=== PATIENT | male | born 1995 | race Caucasian/White ===

== ENCOUNTER 2020-08-26 09:41 | Inpatient (IN) | payer OTHER ==
[2020-08-26 10:53] LABS: PTT 46.7 sec (22.9-36.1); Prothrombin Time 13.8 sec (12.0-14.7)
[2020-08-26 13:52] LABS: Troponin I 4.644 ng/mL (< 0.028)
[2020-08-26 14:06] VITALS: BMI 32.9
[2020-08-26] MEDS ORDERED: Bisacodyl 5 MG TAB PO PRN (14:09)
[2020-08-26] MEDS ORDERED: Calcium Carbonate 500 MG ChewTAB PO PRN (14:09)
[2020-08-26] MEDS ORDERED: Acetaminophen 650 MG Suppository PR PRN (14:09)
[2020-08-26] MEDS ORDERED: Acetaminophen 325 MG TAB PO PRN (14:09)
[2020-08-26] MEDS ORDERED: Ondansetron ODT 4 MG TAB PO PRN (14:09)
[2020-08-26] MEDS ORDERED: Ondansetron PF 4 MG/2 ML Vial IVP PRN (14:09)
[2020-08-26] MEDS ORDERED: Senokot S 8.6-50 MG TAB PO PRN (14:09)
[2020-08-26] MEDS ORDERED: Bisacodyl 10 MG SUPP PR PRN (14:09)
[2020-08-26 14:26] LABS: Amphetamine Not Detected (NotDetected); Barbiturates Screen Not Detected (NotDetected); Benzodiazepine Screen Not Detected (NotDetected); Cocaine Metabolite Screen Not Detected (NotDetected); Medtox Control Line Valid? VALID (VALID); Medtox Reader # READER 1; Methadone Not Detected (NotDetected); Methamphetamine Not Detected (NotDetected); Opiate Screen Not Detected (NotDetected); Oxycodone Screen Not Detected (NotDetected); Phencyclidine (PCP) Not Detected (NotDetected); THC/Cannabinoid Screen Not Detected (NotDetected); Tricyclic Screen Not Detected (NotDetected)
[2020-08-26 17:05] LABS: Troponin I 5.314 ng/mL (< 0.028)
[2020-08-26] MEDS ORDERED: Communication Order-Pharmacy FS SCH (17:15)
[2020-08-26] MEDS ORDERED: Enoxaparin Sodium 120 MG/0.8 ML SYRINGE SC SCH (21:00)
[2020-08-27] MEDS: Carvedilol 3.125 MG TAB PO SCH ×2 (05:18→18:26)
[2020-08-27 05:43] LABS: #Eosinphils 0.2 thou/uL (0.0-0.7); #Lymphocytes 2.1 thou/uL (1.20-3.40); #Monocytes 0.8 thou/uL (0.11-0.59); #Neutrophils 3.8 thou/uL (1.40-6.50); %Basophils 0.6 % (0.0-1.0); %Eosinophils 2.7 % (0.0-10.0); %Lymphocytes 30.4 % (21.0-51.0); %Monocytes 11.8 % (0.0-10.0); %Neutrophils 54.5 % (42.0-75.0); Mean Corpuscular HGB CONC 33.4 g/dL (32.0-36.0); Mean Corpuscular Hemoglobin 30.6 pg (27.0-31.0); Mean Corpuscular Volume 91.6 fL (78.0-98.0); Platelet Count 214 thou/uL (130-400); RBC Distribution Width 11.5 % (11.5-14.5)
[2020-08-27 05:55] LABS: Hemoglobin A1c 4.5 % (4.0-6.0)
[2020-08-27 06:00] LABS: ALT (SGPT) 22 U/L (8-55); AST (SGOT) 32 U/L (5-34); Albumin 4.3 g/dL (3.5-5.0); Alkaline Phosphatase 53 U/L (40-110); Anion Gap 16 mmol/L (10-20); BUN (Urea Nitrogen) 12 mg/dL (8.9-20.6); Bilirubin, Total 1.4 mg/dL (0.2-1.2); Calc. Creatinine Clearance 222 mL/min (70-130); Calcium 9.3 mg/dL (7.8-10.44); Carbon Dioxide 20 mmol/L (22-29); Cardiac Risk 5.8 (Less than 4.5); Chloride 108 mmol/L (98-107); Cholesterol 219 mg/dl (< 200 Desired); Globulin 2.9 g/dL (2.4-3.5); Glucose 111 mg/dL (70-105); HDL Cholesterol 38 mg/dL (>60 Neg Risk); LDL Cholesterol, Calculated 158 mg/dL; Potassium 3.7 mmol/L (3.5-5.1); Protein, Total 7.2 g/dL (6.0-8.3); Sodium 140 mmol/L (136-145); Triglycerides 114 mg/dL (Less than 150)
[2020-08-27] MEDS ORDERED: Heparin 0 ML ONE (06:54)
[2020-08-27] MEDS ORDERED: Lidocaine 1% (PF) 30 ML VIAL ONE ×2 (07:35→07:36)
[2020-08-27] MEDS ORDERED: Fentanyl 100 MCG/2 ML VIAL ONE (08:37)
[2020-08-27] MEDS ORDERED: Midazolam HCl 2 mg/2 ml Vial ONE ×2 (08:37→09:03)
[2020-08-27] MEDS ORDERED: Sodium Chloride 0.9% 200 ML IV PRN (09:20)
[2020-08-27] MEDS ORDERED: Acetaminophen/Codeine 30-300mg Tablet PO PRN ×2 (09:20)
[2020-08-27] MEDS ORDERED: Nitroglycerin 0.4 MG TAB (25 Tab Bottle) SL PRN (09:20)
[2020-08-27] MEDS ORDERED: Aspirin 325 MG TAB PO SCH (10:00)
[2020-08-27 10:24] LABS: Troponin I 1.803 ng/mL (< 0.028)
[2020-08-27] MEDS ORDERED: Iopamidol 370 76% 50 ML VIAL FS ONE (11:46)
[2020-08-27] MEDS ORDERED: Iopamidol 370 76% 100 ML VIAL ONE (11:46)
[2020-08-28 05:38] LABS: #Basophils 0.1 thou/uL (0.0-0.2); #Eosinphils 0.4 thou/uL (0.0-0.7); #Lymphocytes 2.6 thou/uL (1.20-3.40); #Neutrophils 4.6 thou/uL (1.40-6.50); %Basophils 0.9 % (0.0-1.0); %Eosinophils 4.2 % (0.0-10.0); %Lymphocytes 29.8 % (21.0-51.0); %Monocytes 11.3 % (0.0-10.0); %Neutrophils 53.9 % (42.0-75.0); Hemoglobin 14.8 g/dL (14.0-18.0); Mean Corpuscular HGB CONC 34.4 g/dL (32.0-36.0); Mean Corpuscular Hemoglobin 31.5 pg (27.0-31.0); Mean Corpuscular Volume 91.7 fL (78.0-98.0); Mean Platelet Volume 7.6 fL (7.4-10.4); Platelet Count 223 thou/uL (130-400); RBC Distribution Width 11.5 % (11.5-14.5); Red Blood Cell (RBC) Count 4.71 mill/uL (4.70-6.10); White Blood Cell (WBC) Count 8.6 thou/uL (4.8-10.8)
[2020-08-28 05:57] LABS: ALT (SGPT) 18 U/L (8-55); AST (SGOT) 18 U/L (5-34); Alkaline Phosphatase 51 U/L (40-110); Anion Gap 16 mmol/L (10-20); BUN (Urea Nitrogen) 13 mg/dL (8.9-20.6); Bilirubin, Total 1.6 mg/dL (0.2-1.2); Calc. Creatinine Clearance 214 mL/min (70-130); Calcium 9.3 mg/dL (7.8-10.44); Carbon Dioxide 21 mmol/L (22-29); Chloride 106 mmol/L (98-107); Globulin 2.8 g/dL (2.4-3.5); Glucose 100 mg/dL (70-105); Potassium 4.1 mmol/L (3.5-5.1); Protein, Total 6.8 g/dL (6.0-8.3); Sodium 139 mmol/L (136-145)
[2020-08-28] MEDS: Carvedilol 3.125 MG TAB PO SCH (08:48)
[2020-08-28] MEDS ORDERED: Aspirin 325 MG TAB PO SCH (09:00)
[2020-08-28 11:26] VITALS: BP 108/55; TEMP 98.2
== END 2020-08-28 13:29 | disposition home or self-care (01) | DRG 282 ==
LOC: ERS 09:41 → OBSVTOIN 11:50 → 2SW 11:50
PROVIDERS: ADMIT Family Medicine; ATTEND Family Medicine
PROC: 4A023N7 Measurement of Cardiac Sampling and Pressure, Left Heart, Percutaneous Approach (ICD-10-PCS; principal; 2020-08-27)
PROC: B2111ZZ Fluoroscopy of Multiple Coronary Arteries using Low Osmolar Contrast (ICD-10-PCS; 2020-08-27)
PROC: B2151ZZ Fluoroscopy of Left Heart using Low Osmolar Contrast (ICD-10-PCS; 2020-08-27)
DX: I51.4 Myocarditis, unspecified (principal); I21.4 Non-ST elevation (NSTEMI) myocardial infarction; Z20.822 Contact with and (suspected) exposure to COVID-19; E66.9 Obesity, unspecified; Z68.33 Body mass index [BMI] 33.0-33.9, adult
CPT/HCPCS: 36415; 71045; 76942; 80053; 80061; 80306; 82553; 83036; 84145; 84443; 84484; 85025; 85610; 85652; 85730; 86140; 93005; 93306; 93458; 94760; 99152; 99153; G0378; J1644; J2001; J2250; J3010; Q9967